=== PATIENT | male | born 1970 | race Two or more races ===

== ENCOUNTER 2023-06-30 10:20 | Emergency (ER) | payer MEDICAID ==
[~2023-06-30] VITALS: Ht 172.7 cm; Wt 93.8 kg
[2023-06-30] MEDS ORDERED: NAP500T PO (14:17)
[2023-06-30] MEDS: DexAMETHasone SOD PHOS 10MG/1ML VIAL INJ IM ONE (14:46)
[2023-06-30] MEDS: KETOROLAC TROMETH 30 MG/ML 1ML VIAL IM ONE (14:46)
[2023-06-30 16:50] VITALS: BP 148/82; TEMP 98.4
[2023-06-30 17:38] VITALS: PULSE 83; RESP 18; O2SAT 96
== END 2023-06-30 17:37 | disposition home or self-care (01) ==
LOC: ER 10:20
DX: S52.502A Unspecified fracture of the lower end of left radius, initial encounter for closed fracture (principal); W11.XXXA Fall on and from ladder, initial encounter; Y93.89 Activity, other specified; Y92.89 Other specified places as the place of occurrence of the external cause; Y99.8 Other external cause status
CPT/HCPCS: 29125; 73110; 96372; 99284; J1100; J1885